=== PATIENT | male | born 1965 | race Caucasian/White ===

== ENCOUNTER 2017-07-19 11:39 | Emergency (ER) | payer SELFPAY ==
[~2017-07-19] VITALS: Ht 177.8 cm; Wt 77.9 kg
[2017-07-19 11:59] LABS: HEMOGLOBIN 16.4 G/DL (12.5-16.6); MCH 30.1 PG (29.0-34.0); MCHC 33.5 G/DL (30.0-36.0); MCV 89.9 FL (86-99); PLATELET COUNT 319 K/uL (156-360); RBC DIS.WIDTH-CV 14.7 % (11.8-14.6); RBC DIS.WIDTH-SD 48.3 % (39-53); RED BLOOD COUNT 5.45 M/uL (4.00-5.50); WHITE BLOOD COUNT 10.6 K/uL (4.1-10.2)
[2017-07-19 12:09] LABS: ALBUMIN 4.3 g/dL (3.2-4.8); CHLORIDE 104 mEq/L (99-109); POTASSIUM 4.7 mEq/L (3.7-5.4); SODIUM 140 mEq/L (136-147)
[2017-07-19 12:12] LABS: GLUCOSE 117 mg/dL (70-99); TOTAL PROTEIN 7.6 g/dL (6.4-8.3)
[2017-07-19 12:14] LABS: TOTAL BILIRUBIN 0.6 mg/dL (0.0-1.0)
[2017-07-19 12:15] LABS: ALKALINE PHOSPHATASE 120 IU/L (3-129); CREATININE 1.1 mg/dL (0.6-1.3); GFR ESTIMATE (CALCULATED) > 59 mL/min/ (58.99-99999)
[2017-07-19 12:16] LABS: UREA NITROGEN (BUN) 13 mg/dL (9-23)
[2017-07-19 12:17] LABS: AST (GOT) 13 IU/L (2-34)
[2017-07-19 12:18] LABS: ALT (GPT) 12 IU/L (3-49)
[2017-07-19 12:45] LABS: APPEARANCE CLEAR ((CLEAR)); BILIRUBIN NEGATIVE; BLOOD MODERATE; COLOR YELLOW ((YELLOW)); GLUCOSE (STRIP) NEGATIVE; KETONES NEGATIVE; LEUKOCYTES NEGATIVE; NITRITE NEGATIVE; PROTEIN (STRIP) NEGATIVE; SPECIFIC GRAVITY 1.017 (1.000-1.030); UROBILINOGEN 0.2 MG/DL (0.2-1.0)
[2017-07-19 12:47] LABS: BACTERIA RARE /HPF; EPITHELIAL CELLS NONE SEEN /HPF; MUCUS TRACE /LPF; UCUL ADDED? NO; WHITE BLOOD CELLS 0-5 /HPF (0-5)
[2017-07-19] MEDS ORDERED: NORCO 5/3251 TABLET PO (15:20)
[2017-07-19] MEDS ORDERED: BACTRIM,SEPT1 TABLET PO (15:20)
[2017-07-19 15:26] VITALS: BP 130/98
== END 2017-07-19 15:32 | disposition home or self-care (01) ==
LOC: EME 11:39
DX: N13.5 Crossing vessel and stricture of ureter without hydronephrosis (principal); N39.0 Urinary tract infection, site not specified; F17.200 Nicotine dependence, unspecified, uncomplicated; Z87.442 Personal history of urinary calculi; N50.819 Testicular pain, unspecified; N28.1 Cyst of kidney, acquired; N20.0 Calculus of kidney
CPT/HCPCS: 74177; 80053; 81003; 85027; 99281; 99284